=== PATIENT | male | born 1945 | race Caucasian/White ===

== ENCOUNTER 2020-08-31 12:54 | Outpatient (CLI) | payer MEDICARE | END 2020-08-31 12:55 | disposition home or self-care (01) | LOC: BICCT 12:54 | PROVIDERS: ATTEND Otolaryngology Plastic Surgery within the Head & Neck | DX: C02.9 Malignant neoplasm of tongue, unspecified (principal) | CPT/HCPCS: 70491; 82565; Q9967 ==